=== PATIENT | female | born 2000 | race Caucasian/White ===

== ENCOUNTER 2021-09-15 11:48 | Day surgery (SDC) | payer BC, MEDICAID ==
[2021-09-14 08:53] VITALS: BMI 30.2
--- NOTE | 2021-09-14 09:10 | P.HPOR ---
History of Present Illness H&P Date: 09/14/21 Chief Complaint: Left distal radius fracture New Patient Hand Office Note Age: 21 year Height: 5'1" Weight: 160 lbs Subjective: This is a 21 year old female that presents evaluation regarding a left wrist injury that occurred on 09/11/21. She states she was skiing in [place] when she fell on to an outstretched hand. He was seen at an urgent care and placed in a splint and told to follow up with orthopedics. She has been in the splint since, she denies any paresthesias and denies any prior injury or any other areas of pain. Physical Examination: LUE: AIN/PIN/Radial/Ulnar/Median motor intact. Radial/Ulnar/Median SILT. 2+/4 Radial/Ulnar pulses palpated. 5/5 APB, 5/5 FDI. Negative Finkelsteins, negative CMC grind, negative Durkan's compression. TTP with bruising/swelling over distal radius. NTTP over radial head and olecranon with elbow ROM 0-130. Imaging: X-Rays of the left wrist demonstrate an intra-articular distal radius fracture with 30 degree of dorsal displacement and 20 degrees of dorsal angulation. Nondisplaced ulnar styloid fracture X-Rays of the left elbow demonstrate no acute osseus abnormality with no evidence of fracture/dislocation. Impression: 1.) Left Displaced intra-articular distal radius fracture 2.) Left ulnar styloid fracture, non displaced. Plan: Diagnosis and treatment options were discussed with the patient. Due to the amount of displacement and angulation and the patients age I recommend surgical intervention. Risks and benefit of surgery including bleeding, infection, damage to surrounding tissue, need for further surgery, and hardware irritation discussed and the patient wished to go forward with surgery. She will be scheduled for a left distal radius fracture ORIF in the near future. She is to remain in her current splint and to be non-weight bearing to her left wrist. -Riki Ramos DO Orthopedic Hand/Upper Extremity Surgeon Past Medical History Past Medical History: Musculoskeletal Disorder, Skin Disorder Additional Past Medical History / Comment(s): Eczema. Lt wrist fx. History of Any Multi-Drug Resistant Organisms: None Reported Additional Past Surgical History / Comment(s): wisdom teeth Past Anesthesia/Blood Transfusion Reactions: Motion Sickness Smoking Status: Current some day smoker - Past Family History Mother Family Medical History: No Reported History Medications and Allergies Home Medications Medication Instructions Recorded Confirmed Type Acetaminophen [Tylenol Extra 1,000 mg PO DIRECTED PRN 09/14/21 09/14/21 History Strength] Multivitamins, Thera [Multivitamin 1 tab PO DAILY 09/14/21 09/14/21 History (formulary)] Allergies Allergy/AdvReac Type Severity Reaction Status Date / Time No Known Allergies Allergy Verified 09/14/21 08:22 Physical Examination Osteopathic Statement: *. No significant issues noted on an osteopathic structural exam other than those noted in the History and Physical/Consult.
[~2021-09-15 11:48] MED LIST: DEXAMETHASONE SOD PHOSPHATE 4 MG/ML 1 ML VIAL IV ONE; HYDROmorphone 0.5 MG/0.5 ML SYRINGE IVP PRN; LACTATED RINGERS 1,000 ML IV SCH; LIDOCAINE 1% (10MG/ML) FOR IV START INTRADERMA PRN; MIDAZOLAM 2 MG/2 ML VIAL IV PRN; ONDANSETRON 4 MG/2 ML VIAL IVP ONE
[2021-09-15] MEDS ORDERED: SCOPOLAMINE 1.5MG/72HR PATCH TRANSDERM ONE (12:36)
[2021-09-15] MEDS ORDERED: MIDAZOLAM 2 MG/2 ML VIAL IVP ONE (12:54)
[2021-09-15] MEDS ORDERED: fentaNYL (PF) 50 MCG/ML 2 ML AMP IVP ONE (12:54)
[2021-09-15] MEDS ORDERED: DEXAMETHASONE SOD PHOSPHATE 4 MG/ML 1 ML VIAL ONE (13:00)
[2021-09-15] MEDS ORDERED: KETAMINE 10 MG/ML 20 ML VIAL ONE (13:00)
[2021-09-15] MEDS ORDERED: PROPOFOL 10 MG/ML 20 ML VIAL IV ONE (13:00)
[2021-09-15] MEDS ORDERED: LIDOCAINE 1% INJ 10MG/ML (20 ML MDV) ONE (13:00)
[2021-09-15] MEDS ORDERED: fentaNYL (PF) 50 MCG/ML 2 ML AMP ONE (13:00)
[2021-09-15] MEDS ORDERED: ROPIVACAINE 5 MG/ML 30 ML VIAL ONE (13:00)
--- NOTE | 2021-09-15 14:26 | P.ANPRN ---
Procedure Note - Anesthesia - Nerve Block Performed Left Supraclavicular Single Time Out Performed: Yes Date of Procedure: 09/15/21 Procedure Start Time: 12:53 Procedure Stop Time: 13:00 Location of Patient: PreOp Indication: Requested by Surgeon Specifically requested for management of pain by DrNavin: Riki Ramos Sedation Type: Sedate with meaningful contact maintained Preparation: Sterile Prep Position: Supine Needle Types: Pajunk Needle Gauge: 21 Ultrasound used to visualize needle placement: Yes Ultrasound used to observe medication spread: Yes Injectate: 0.5% Ropivacaine (see comment for volume) (20 ml + 4mg Dexamethasone) Blood Aspirated: No Pain Paresthesia on Injection Noted: No Resistance on Injection: Normal Image Stored and Saved: Yes Events: Uneventful and Well Tolerated
[2021-09-15 14:37] VITALS: TEMP 98.2
[2021-09-15 15:15] VITALS: BP 126/82; RESP 16
[2021-09-15 15:22] VITALS: PULSE 76
--- NOTE | 2021-09-15 21:25 | P.OP ---
Date of Procedure: 09/15/21 Preoperative Diagnosis: Left intra-articular distal radius fracture Postoperative Diagnosis: Same Procedure(s) Performed: Open reduction internal fixation of left intra-articular distal radius fracture, 3 part. Implants: Jonny/Biomet DVR Volar locking plate, short, narrow. Anesthesia: regional Surgeon: Riki Ramos Portable Pinch Riveter #1: Wolf Forbes Estimated Blood Loss (ml): 10 Pathology: none sent Condition: stable Disposition: PACU Description of Procedure: This is a 21 year old female who sustained a displaced intra-articular distal radius fracture and presents today for open reduction internal fixation of their left distal radius fracture . Risks and benefits of surgery were discussed with the patient including bleeding, damage to surrounding tissue, infection, need for further surgery as well as risks of anesthesia including pulmonary embolism and even and the patient wished to proceed with surgical intervention. The patients was seen in the pre-operative area by myself. Consent and H&P were completed and updated. The correct extremity was marked in the pre-operative area by myself and all other questions were answered. Operative Narrative: The patient was brought to the operating room by the department of anesthesia. They remained on the portable stretcher and a rolling hand table was brought to the side of the operative extremity. Pre-operative time out was performed indicating the correct patient, procedure and laterality. All in the room agreed. Pre-operative antibiotics were given prior to skin incision. The patient was then drifted off to sleep by the department of anesthesia. A nonsterile tourniquet was then applied to the operative extremity and the left upper extremity was then prepped and draped in normal sterile fashion. The operative extremity was the exsanguinated with an esmarch bandage and the tourniquet was inflated to 250mmHg. A longitudinal incision centered over the FCR tendon was made with a 15-blade scalpel. Blunt dissection was taken down to the FCR tendon sheath using Bovie cautery for meticulous hemostasis. The FCR sheath was opened with tenotomy scissors. The floor of the FCR sheath was then incised with a 15-blade scalpel and the FPL tendon and muscle belly was swept bluntly in an ulnar direction to reveal the pronator quadratus. Pronator quadratus was sharply incised with a 15-blade scalpel along the radial border of the distal radius, coming across transversely parallel to the joint at the level of the watershed line, radial artery was identified and protected. Periosteal elevator was then used to elevate the pronator quadratus off the distal radius from a radial to ulnar fashion. A Hollywood elevator was used to lever the distal piece back into place and free up the fractured fragments. A short/narrow width Jonny/biomet crosslock DVR plate was chosen to fit the patients anatomy best. This was placed on the distal radius under direct visualization and the K- wire was placed in the shaft k-wire hole. The fracture was then reduced to the plate distally and a k-wire was placed in the ulnar most k-wire hole in the proximal row. Fluoroscopy was then utilized to confirm correct placement of plate in the radial/ulnar plane and distal k-wire placement was confirmed to be proximal to the subchondral bone on 20 degree elevated lateral view confirming extra- articular screw placement. Yazidi of radial height, inclination and volar tilt was achieved. The oblong hole was drilled and filled with a cortical screw. The proximal row and radial styloid screw hole was then drilled and filled from ulnar to radial with locking screws. Distal row was then drilled and filled with locking smooth pegs. Attention was then brought to the proximal shaft screws. Proximal crosslocking shaft screws were drilled with a nonlocking screws. The wrist joint was the ranged and full smooth flexion/extension with no crepitus appreciated. Final imaging was taken confirming extra-articular placement of distal screws at DRUJ and radiocarpal joint. DRUJ was then stressed and found to be stable, therefore decision to proceed with conservative treatment of the ulnar styloid fracture was made. The wound was then irrigated. Subcutaneous closure was performed with 3-0 vicryl followed by skin closure with 4-0 monocryl suture. Sterile dressing consisting of mastisol/steri strips, 4x4s, and a volar plaster splint was applied. Tourniquet was let down and the hand had immediate perfusion. The patient was then woken by the department of anesthesia and transferred to PACU in stable condition. The patient was then woken by the department of anesthesia and transferred to PACU in stable condition. Wolf IZQUIERDO was present for the entirety of the surgery due to the need for a skilled pediatric physician assistant to protect vital neurovascular structures and assist in placement of hardware intra-operatively. Riki Ramos D.O. Orthopedic Hand/Upper Extremity Surgeon
== END 2021-09-15 16:14 | disposition home or self-care (01) ==
LOC: OR 11:48
PROVIDERS: ATTEND Orthopaedic Surgery Hand Surgery
DX: W00.0XXA Fall on same level due to ice and snow, initial encounter (principal); S52.572A Other intraarticular fracture of lower end of left radius, initial encounter for closed fracture; Y93.23 Activity, snow (alpine) (downhill) skiing, snowboarding, sledding, tobogganing and snow tubing; L30.9 Dermatitis, unspecified; Z98.890 Other specified postprocedural states; F17.200 Nicotine dependence, unspecified, uncomplicated
CPT/HCPCS: 81025; 64415; 76942; 25609; C1713; J2250; J1100; J2405; J0690; J2001; J3010; J2795; J2704